=== PATIENT | male | born 1995 | race Caucasian/White ===

== ENCOUNTER → 2017-12-05 | Outpatient (CLI) | payer BC ==
[~2017-12-05] MED LIST: DICY20TA70 PO; IBUP600T22 PO; LOR5/325 PO; LORA-799 PO; NAPR500T75 PO; NO RTN MEDS; OMEP-125 PO; ONDA-2 PO; ONDA4TAB PO; PANT40TA65 PO; TRAM-627 PO
--- NOTE | 2017-12-05 16:47 | RADIOLOGY IMAGING REPORT ---
FACILITY: [facility] PATIENT NAME: David Petit : 1995 MR: [id number] V: [id number] EXAM DATE: ORDERING PHYSICIAN: TITA SANTOYO TECHNOLOGIST: Location: [facility] [place] Patient: David Petit : 1995 Visit/Account:[id number] Date of Sevice: 12/05/2017 EXAMINATION: Cervical Spine 6 views HISTORY: C-spine tenderness and numbness in both hands. Fall yesterday. COMPARISON: None. FINDINGS: There is loss of the normal cervical lordosis with mild cervical kyphosis centered at C4. Otherwise normal alignment along the cervical spine. No radiographic evidence of acute fracture or martinez bluxation. Vertebral body height and disc spaces are preserved. The posterior elements appear radiogr aphically intact. The dens appears radiographically intact. No prevertebral soft tissue swelling. IMPRESSION: 1. Loss of the cervical lordosis may be positional or related to muscle spasm. 2. Otherwise unremarkable cervical spine series. No radiographic evidence of acute fracture or sublux ation. Report Dictated By: Garrick Ernandez MD at 12/05/2017 4:37 PM Report E-Signed By: Garrick Ernandez MD at 12/05/2017 4:42 PM WSN:[id number]
== END ==
LOC: RAD 15:48
PROVIDERS: ATTEND Family Medicine
DX: M54.2 Cervicalgia (principal)
CPT/HCPCS: 72050